=== PATIENT | female | born 1945 | race African-American/Black ===

== ENCOUNTER 2022-09-30 18:54 | Inpatient (IN) | payer MEDICARE, BC ==
[~2022-09-30] VITALS: Ht 165.1 cm; Wt 85.0 kg
[2022-09-30 18:40] VITALS: PULSE 78; RESP 26; O2SAT 100
[~2022-09-30 18:54] MED LIST: AMLO-257 PO
[2022-09-30 19:00] VITALS: PULSE 73; RESP 23; O2SAT 100
[2022-09-30 19:20] LABS: EOSINOPHILS % (AUTO) 1.4 % (1.0-6.0); HEMATOCRIT 40.6 % (36-46); HEMOGLOBIN 12.8 g/dL (12.0-16.0); LYMPHOCYTES % (AUTO) 45.5 % (22.0-44.0); MEAN CORPUSCULAR HEMOGLOBIN 26.7 pg (26.0-34.0); MEAN CORPUSCULAR HGB CONC 31.6 G/dL (31.0-37.0); MEAN CORPUSCULAR VOLUME 85 fL (80-100); MONOCYTES # (AUTO) 0.5 K/uL (0.1-1.0); MONOCYTES % (AUTO) 6.2 % (2.0-9.0); NEUTROPHILS % (AUTO) 45.9 % (40.0-70.0); PLATELET COUNT (AUTO) 303 K/uL (150-450); RED CELL DISTRIBUTION WIDTH 14.8 % (11.5-14.5)
[2022-09-30 19:28] LABS: CALCIUM, TOTAL 8.1 mg/dL (8.8-10.5); CREATININE 1.54 mg/dL (0.60-1.30); POTASSIUM 3.5 mmol/L (3.5-5.1)
[2022-09-30 19:34] LABS: ALBUMIN 3.3 g/dL (3.4-5.0); BILIRUBIN,TOTAL 0.8 mg/dL (0.1-1.0); TOTAL PROTEIN, SERUM 6.9 g/dL (6.4-8.2)
[2022-09-30] MEDS ORDERED: FUROSEMIDE 40 MG/4 ML VIAL IVP ONE (19:45)
[2022-09-30] MEDS ORDERED: ONDANSETRON HCL 4 MG/2 ML VIAL IVP PRN (20:15)
[2022-09-30] MEDS ORDERED: ACETAMINOPHEN 325 MG TABLET PO PRN (20:15)
[2022-09-30 22:26] VITALS: BP 150/77; PULSE 75; RESP 22; TEMP 98.3
[2022-10-01] VITALS (10 sets, daily range): BP systolic 114–145; BP diastolic 60–85; PULSE 47–58; RESP 16–20; TEMP 97.9–99.2; O2SAT 57–98
[2022-10-01] MEDS ORDERED: ACETAMINOPHEN 325 MG TABLET PO PRN (09:30)
[2022-10-01] MEDS ORDERED: ONDANSETRON HCL 4 MG/2 ML VIAL IVP PRN (09:30)
[2022-10-01] MEDS ORDERED: ZOLPIDEM TARTRATE 5 MG TABLET PO PRN (09:30)
[2022-10-01] MEDS ORDERED: MAGNESIUM HYDROXIDE SUSPENSION 30 ML UDCUP PO PRN (09:30)
[2022-10-01] MEDS ORDERED: BISACODYL 10 MG RECTAL RECTAL SUPPOSITORY PR PRN (09:30)
[2022-10-01] MEDS ORDERED: LOSARTAN POTASSIUM 50 MG TABLET PO SCH (10:00)
[2022-10-01] MEDS: FUROSEMIDE 40 MG/4 ML VIAL IVP SCH ×2 (10:03→20:40)
[2022-10-01] MEDS: ASPIRIN 81 MG CHEWABLE TABLET PO SCH (10:04)
[2022-10-01] MEDS: PANTOPRAZOLE SODIUM 40 MG DR TABLET PO SCH (10:07)
[2022-10-01] MEDS: ATORVASTATIN CALCIUM 40 MG TABLET PO SCH (10:07)
[2022-10-01] MEDS: MORPHINE SULFATE 2 MG/ML SYRINGE IVP PRN ×2 (10:08→17:24)
[2022-10-01] MEDS: HEPARIN SODIUM,PORCINE 5,000 UNITS/ML VIAL SQ SCH (17:17)
[2022-10-01] MEDS: DOCUSATE SODIUM 100 MG CAPSULE PO SCH (20:40)
[2022-10-01] MEDS: HYDROCODONE/ACETAMINOPHEN 5-325 MG TABLET PO PRN (20:41)
[2022-10-02] MEDS: HEPARIN SODIUM,PORCINE 5,000 UNITS/ML VIAL SQ SCH ×2 (00:44→08:58)
[2022-10-02 04:52] VITALS: BP 138/78; PULSE 76; RESP 18; TEMP 98.9
[2022-10-02 07:28] LABS: BASOPHILS % (AUTO) 0.7 % (0.0-2.0); EOSINOPHILS % (AUTO) 1.5 % (1.0-6.0); HEMATOCRIT 38.7 % (36-46); HEMOGLOBIN 12.4 g/dL (12.0-16.0); LYMPHOCYTES # (AUTO) 1.5 K/uL (1.0-4.8); LYMPHOCYTES % (AUTO) 22.2 % (22.0-44.0); MEAN CORPUSCULAR HEMOGLOBIN 26.7 pg (26.0-34.0); MEAN CORPUSCULAR VOLUME 83 fL (80-100); MONOCYTES # (AUTO) 0.8 K/uL (0.1-1.0); MONOCYTES % (AUTO) 11.9 % (2.0-9.0); NEUTROPHILS # (AUTO) 4.4 K/uL (1.8-7.7); NEUTROPHILS % (AUTO) 63.7 % (40.0-70.0); PLATELET COUNT (AUTO) 261 K/uL (150-450); RED BLOOD CELL COUNT(AUTO) 4.65 MIL/uL (4.00-5.20); RED CELL DISTRIBUTION WIDTH 14.7 % (11.5-14.5)
[2022-10-02 07:37] LABS: CALCIUM, TOTAL 8.5 mg/dL (8.8-10.5); CREATININE 1.11 mg/dL (0.60-1.30); POTASSIUM 3.7 mmol/L (3.5-5.1)
[2022-10-02 07:48] VITALS: BP 114/65; PULSE 48; RESP 19; TEMP 98.6
[2022-10-02] MEDS: HYDROCODONE/ACETAMINOPHEN 5-325 MG TABLET PO PRN (08:58)
[2022-10-02] MEDS: ASPIRIN 81 MG CHEWABLE TABLET PO SCH (08:58)
[2022-10-02] MEDS: FUROSEMIDE 40 MG/4 ML VIAL IVP SCH ×2 (08:58→09:00)
[2022-10-02] MEDS: AmLODIPine BESYLATE 5 MG TABLET PO SCH ×2 (08:58→09:00)
[2022-10-02] MEDS: PANTOPRAZOLE SODIUM 40 MG DR TABLET PO SCH (08:59)
[2022-10-02] MEDS: ATORVASTATIN CALCIUM 40 MG TABLET PO SCH (08:59)
[2022-10-02] MEDS: DOCUSATE SODIUM 100 MG CAPSULE PO SCH (08:59)
[2022-10-02] MEDS ORDERED: FUROSEMIDE 40 MG TABLET PO SCH (09:30)
[2022-10-02] MEDS ORDERED: LOSARTAN POTASSIUM 25 MG TABLET PO SCH (09:30)
[2022-10-02 11:34] VITALS: BP 123/63; PULSE 50; RESP 19; TEMP 98.6
[2022-10-02] MEDS ORDERED: FURO40 PO (12:39)
[2022-10-02] MEDS ORDERED: ASPI81 PO (12:39)
[2022-10-02] MEDS ORDERED: LOSA25TA2 PO (12:39)
[2022-10-02] MEDS ORDERED: ATOR40TA71 PO (12:39)
[2022-10-02 16:09] VITALS: BP 127/65; PULSE 73; RESP 18; TEMP 98.7
== END 2022-10-02 16:15 | disposition home or self-care (01) | DRG 291 ==
LOC: EMS 19:01 → 5S 20:05
PROVIDERS: ADMIT Internal Medicine; ATTEND Internal Medicine
PROC: 5A09357 Assistance with Respiratory Ventilation, Less than 24 Consecutive Hours, Continuous Positive Airway Pressure (ICD-10-PCS; principal; 2022-09-30)
DX: I11.0 Hypertensive heart disease with heart failure (principal); I50.43 Acute on chronic combined systolic (congestive) and diastolic (congestive) heart failure; J96.01 Acute respiratory failure with hypoxia; N17.9 Acute kidney failure, unspecified; E78.5 Hyperlipidemia, unspecified; J44.9 Chronic obstructive pulmonary disease, unspecified; I42.9 Cardiomyopathy, unspecified; R74.01 Elevation of levels of liver transaminase levels; Z88.8 Allergy status to other drugs, medicaments and biological substances; I25.2 Old myocardial infarction; Z87.891 Personal history of nicotine dependence; Z79.899 Other long term (current) drug therapy
CPT/HCPCS: 71045; 80048; 80053; 83880; 84484; 85025; 93005; 94660; 99291; J1644; J1940; J2270; 36415-L1; 36415-TC